=== PATIENT | male | born 1980 | race African-American/Black ===

== ENCOUNTER 2025-01-23 20:13 | Inpatient (IN) | payer OTHER ==
[~2025-01-23] VITALS: Ht 182.9 cm; Wt 129.7 kg
[2025-01-23 20:20] VITALS: O2SAT 100
[2025-01-23 20:57] LABS: BASOPHILS % 0.5 % (0.0-2.0); EOSINOPHILS % 0.6 % (0.0-5.0); HEMATOCRIT. 43.7 % (42.0-52.0); HEMOGLOBIN. 14.5 g/dL (14.0-18.0); LYMPHOCYTES % 16.5 % (20.0-50.0); MEAN PLATELET VOLUME 7.3 fl (7.4-10.4); MONOCYTES % 14.1 % (2.0-8.0); NEUTROPHILS % 68.3 % (40.0-76.0); PLATELET 183 x1000/uL (130-400); RED BLOOD CELL COUNT 4.89 mill/uL (4.7-6.1); RED CELL DISTRIBUTION WIDTH 13.7 % (11.6-14.6)
[2025-01-23] MEDS: SODIUM CHLORIDE 0.9% 1,000 ML IV ONE (21:08)
[2025-01-23 21:09] LABS: CREATININE 1.5 mg/dL (0.6-1.3); ETHANOL BLOOD < 10 mg/dL (<10); UREA NITROGEN BLOOD 19 mg/dL (9-23)
[2025-01-23 21:11] LABS: ASPARTATE AMINOTRANSFERASE 39 IU/L (<34); BILIRUBIN DIRECT 0.4 mg/dL (<=3.0); BILIRUBIN TOTAL 1.7 mg/dL (0.1-1.0); PROTEIN TOTAL 6.8 g/dL (6.0-8.3)
[2025-01-23 21:21] LABS: TROPONIN I HIGH SENSITIVITY 103 ng/L (3.0-53)
[2025-01-23] MEDS: KCL 20MEQ/100ML PREMIX 100 ML IV NR (21:52)
[2025-01-23] MEDS: POTASSIUM CHLORIDE 20MEQ TABLET SR PO NR (21:56)
[2025-01-23 22:13] LABS: *AMPHETAMINES SCREEN URINE PRESUMPTIVE POSITIVE (NEGATIVE); *BARBITURATES SCREEN URINE NEGATIVE (NEGATIVE); *BENZODIAZEPINES SCREEN URINE NEGATIVE (NEGATIVE); *COCAINE SCREEN URINE NEGATIVE (NEGATIVE); METHADONE URINE SCREEN NEGATIVE (NEGATIVE)
[2025-01-23 22:14] LABS: CANNABINOID URINE SCREEN PRESUMPTIVE POSITIVE (NEGATIVE); ECSTASY MDMA SCREEN URINE NEGATIVE (NEGATIVE); OPIATES URINE SCREEN NEGATIVE (NEGATIVE); PHENCYCLIDINE URINE SCREEN NEGATIVE (NEGATIVE)
[2025-01-23] MEDS: ASPIRIN 325MG EC TABLET PO ONE (23:19)
[2025-01-23 23:49] LABS: TROPONIN I HIGH SENSITIVITY 90 ng/L (3.0-53)
[2025-01-24] VITALS (7 sets, daily range): BP systolic 120–142; BP diastolic 80–115; PULSE 64–78; RESP 15–19; TEMP 36.3–36.7; O2SAT 97–100
[2025-01-24] MEDS ORDERED: ACETAMINOPHEN 325MG TABLET PO PRN ×3 (04:15→11:00)
[2025-01-24] MEDS: METOPROLOL TARTRATE 50MG TABLET PO SCH (08:44)
[2025-01-24] MEDS: ASPIRIN 81MG TABLET PO SCH (08:45)
[2025-01-24] MEDS: ENOXAPARIN 30MG/0.3ML SYR SUBCUT SCH (08:47)
[2025-01-24 10:37] LABS: HEMATOCRIT. 43.0 % (42.0-52.0); HEMOGLOBIN. 14.3 g/dL (14.0-18.0); MEAN PLATELET VOLUME 7.6 fl (7.4-10.4); PLATELET 182 x1000/uL (130-400); RED BLOOD CELL COUNT 4.88 mill/uL (4.7-6.1); RED CELL DISTRIBUTION WIDTH 14.0 % (11.6-14.6)
[2025-01-24] MEDS: FUROSEMIDE 40MG/4ML VIAL IVP SCH ×2 (10:45→22:19)
[2025-01-24] MEDS ORDERED: LOSA25TA26 PO (10:49)
[2025-01-24] MEDS ORDERED: ARIP5TAB51 PO (10:49)
[2025-01-24] MEDS ORDERED: HYDR12.54 (10:49)
[2025-01-24] MEDS ORDERED: MIRT-89 PO (10:49)
[2025-01-24 10:57] LABS: TRIGLYCERIDE 115.0 mg/dL (0-150)
[2025-01-24 10:58] LABS: LDL CHOLESTEROL 146.0 mg/dL (5-100)
[2025-01-24] MEDS ORDERED: POTASSIUM CHLORIDE 20MEQ TABLET SR PO NR (11:00)
[2025-01-24] MEDS ORDERED: ONDANSETRON HCL 4MG/2ML INJ IV PRN (11:00)
[2025-01-24 11:16] LABS: TROPONIN I HIGH SENSITIVITY 70.0 ng/L (3.0-53)
[2025-01-24] MEDS: POTASSIUM CHLORIDE 20MEQ TABLET SR PO NR (14:26)
[2025-01-24 15:24] LABS: LYMPHOCYTES % MANUAL 34.0 % (20.0-50.0); MONOCYTES % MANUAL 10.0 % (2.0-8.0); NEUTROPHILS % MANUAL 56.0 % (45.0-75.0); PLATELET ESTIMATE NORMAL
[2025-01-24] MEDS: POTASSIUM CHLORIDE 20MEQ/PACKET PO NR (17:24)
[2025-01-24] MEDS ORDERED: ATORVASTATIN CALCIUM 40MG TABLET PO SCH (21:00)
[2025-01-24] MEDS: ATORVASTATIN CALCIUM 40MG TABLET PO SCH (22:04)
[2025-01-25] VITALS: BP 134/89; PULSE 67; RESP 17; TEMP 37.2; O2SAT 99
[2025-01-25 04:00] VITALS: BP_SYST 137; BP_DIAS 100; BP_DIAS 62; PULSE 61; RESP 18; TEMP 36.3; O2SAT 100
[2025-01-25 05:10] LABS: *AMPHETAMINES SCREEN URINE NEGATIVE (NEGATIVE); *BARBITURATES SCREEN URINE NEGATIVE (NEGATIVE); *BENZODIAZEPINES SCREEN URINE NEGATIVE (NEGATIVE); *COCAINE SCREEN URINE NEGATIVE (NEGATIVE); CANNABINOID URINE SCREEN PRESUMPTIVE POSITIVE (NEGATIVE); ECSTASY MDMA SCREEN URINE NEGATIVE (NEGATIVE); METHADONE URINE SCREEN NEGATIVE (NEGATIVE); OPIATES URINE SCREEN NEGATIVE (NEGATIVE); PHENCYCLIDINE URINE SCREEN NEGATIVE (NEGATIVE)
[2025-01-25 07:24] LABS: BASOPHILS % 0.5 % (0.0-2.0); EOSINOPHILS % 1.4 % (0.0-5.0); HEMATOCRIT. 43.2 % (42.0-52.0); HEMOGLOBIN. 14.7 g/dL (14.0-18.0); LYMPHOCYTES % 34.1 % (20.0-50.0); MEAN PLATELET VOLUME 8.1 fl (7.4-10.4); MONOCYTES % 12.0 % (2.0-8.0); NEUTROPHILS % 52.0 % (40.0-76.0); PLATELET 184 x1000/uL (130-400); RED BLOOD CELL COUNT 4.85 mill/uL (4.7-6.1); RED CELL DISTRIBUTION WIDTH 14.4 % (11.6-14.6)
[2025-01-25 07:54] LABS: CREATININE 1.3 mg/dL (0.6-1.3); UREA NITROGEN BLOOD 25 mg/dL (9-23)
[2025-01-25] MEDS ORDERED: MIRTAZAPINE 15MG TABLET PO SCH (09:00)
[2025-01-25] MEDS ORDERED: LOSARTAN 25 MG TABLET PO SCH (09:00)
[2025-01-25] MEDS ORDERED: ASPIRIN 81MG TABLET PO SCH (09:00)
[2025-01-25] MEDS ORDERED: PANTOPRAZOLE SODIUM 40 MG/VIAL IV SCH (09:00)
[2025-01-25] MEDS ORDERED: ARIPIPRAZOLE 5MG TABLET PO SCH (09:00)
[2025-01-25] MEDS ORDERED: HYDROCHLOROTHIAZIDE 12.5MG CAPSULE PO SCH (09:00)
== END 2025-01-25 09:54 | disposition left against medical advice (07) | DRG 194 ==
LOC: ER 20:13 → 5WST 23:28 → EDBEDREQ 23:31 → EDBEDREQTM 23:31 → CANRESERV 01-24 00:47 → ENRESERV 01-24 00:47
PROVIDERS: ADMIT Internal Medicine; ATTEND Internal Medicine
DX: I11.0 Hypertensive heart disease with heart failure (principal); I21.A1 Myocardial infarction type 2; E87.6 Hypokalemia; F15.90 Other stimulant use, unspecified, uncomplicated; Z53.21 Procedure and treatment not carried out due to patient leaving prior to being seen by health care provider; Z59.00 Homelessness unspecified; I50.9 Heart failure, unspecified
CPT/HCPCS: 36415; 71045; 80048; 80061; 80076; 80305; 80320; 83880; 84484; 85025; 93005; 93308; 99291; J1650; J1938; J2470; J3480; J7030; G0480